=== PATIENT | female | born 1980 | race Caucasian/White ===

== ENCOUNTER 2016-08-27 21:40 | Emergency (ER) | payer OTHER | END 2016-08-27 22:25 | disposition home or self-care (01) | LOC: ER 21:40 | DX: S39.012A Strain of muscle, fascia and tendon of lower back, initial encounter (principal); M54.17 Radiculopathy, lumbosacral region; E66.9 Obesity, unspecified; F32.9 Major depressive disorder, single episode, unspecified; F41.9 Anxiety disorder, unspecified; G43.909 Migraine, unspecified, not intractable, without status migrainosus; Z79.899 Other long term (current) drug therapy; Z88.5 Allergy status to narcotic agent; Z88.6 Allergy status to analgesic agent; Z88.8 Allergy status to other drugs, medicaments and biological substances; W01.0XXA Fall on same level from slipping, tripping and stumbling without subsequent striking against object, initial encounter | CPT/HCPCS: 96372; J1885 ==